=== PATIENT | male | born 1990 | race Caucasian/White ===

== ENCOUNTER 2018-06-19 13:38 | Emergency (ER) | payer BC ==
[~2018-06-19] VITALS: Ht 182.9 cm; Wt 73.5 kg
[2018-06-19 13:43] VITALS: BP_SYST 157
--- NOTE | 2018-06-19 14:33 | NUR ---
Patient was brought back to tai bed. At which point he decided that he would rather go to urgent care. Patient left without being seen.
== END 2018-06-19 14:41 | disposition left against medical advice (07) ==
LOC: SED 13:38
DX: M54.6 Pain in thoracic spine (principal); Z53.21 Procedure and treatment not carried out due to patient leaving prior to being seen by health care provider